=== PATIENT | male | born 1925 | race Caucasian/White ===

== ENCOUNTER → 2016-10-08 | Outpatient (CLI) | payer OTHER, MEDICARE ==
[~2016-10-08] MED LIST: IOPAMIDOL (ISOVUE 370) 100 ML BTL IV ONE
[2016-10-08 10:13] LABS: CREATININE 1.7 mg/dL (0.7-1.3)
== END ==
LOC: FIMAGING 09:31
PROVIDERS: ATTEND Psychiatry & Neurology Neurology
DX: I65.22 Occlusion and stenosis of left carotid artery (principal)
CPT/HCPCS: 70498; Q9967

== ENCOUNTER → 2016-10-21 | Outpatient (CLI) | payer OTHER, MEDICARE | LOC: BHFA 09:15 | PROVIDERS: ATTEND Internal Medicine Cardiovascular Disease | DX: I25.10 Atherosclerotic heart disease of native coronary artery without angina pectoris (principal); R06.00 Dyspnea, unspecified ==

== ENCOUNTER → 2016-10-27 | Outpatient (CLI) | payer OTHER, MEDICARE | LOC: BHFA 13:00 | PROVIDERS: ATTEND Internal Medicine Interventional Cardiology | DX: I25.10 Atherosclerotic heart disease of native coronary artery without angina pectoris (principal); E78.5 Hyperlipidemia, unspecified; I10 Essential (primary) hypertension; I65.29 Occlusion and stenosis of unspecified carotid artery ==

== ENCOUNTER → 2016-12-26 | Outpatient (CLI) | payer OTHER, MEDICARE | LOC: FIMAGING 15:17 | DX: I27.2 Other secondary pulmonary hypertension (principal); R09.02 Hypoxemia; R06.02 Shortness of breath; Z86.718 Personal history of other venous thrombosis and embolism | CPT/HCPCS: 71020; 78582; A9540; A9558 ==

== ENCOUNTER 2017-01-14 10:48 | Observation (INO) | payer OTHER, MEDICARE ==
--- NOTE | 2017-01-14 11:04 | CPEKG ---
Heart Rate: 45 RR Interval: 1333 P-R Interval: 168 QRSD Interval: 154 QT Interval: 488 QTC Interval: 423 P [place]: 67 QRS [place]: 78 T Wave [place]: 51 EKG Severity - ABNORMAL ECG - EKG Impression: BRADYCARDIA WITH IRREGULAR RATE 39-49 EKG Impression: RIGHT BUNDLE BRANCH BLOCK Electronically Signed By: Megan Duran 14-Jan-2017 20:42:27
--- NOTE | 2017-01-14 13:04 | EDPHY ---
H & P Time Seen by Provider: 01/14/17 12:55 HPI/ROS: CHIEF COMPLAINT: Off balance HISTORY OF PRESENT ILLNESS: The patient is an 89-year-old male with hypertension and carotid endarterectomy two months ago who presents with confusion, vertigo, and ataxia onset 9am. His noted that he was confused at 9am. The patient stood up after speaking with his brother on the phone and felt a spinning sensation. At that time his right ear felt blocked "like water should be dribbling out of it." The patient tried walking over to the couch, but felt unsteady and off balance. He took a nap and when he got up and his spinning had resolved. However, he continues to feel "wobbly" with ambulation. He went for a 3 mile hike yesterday without issue. The patient had a left sided carotid endarterectomy two months ago without complication. Patient takes a daily Aspirin. No recent changes in medications. No recent head/neck trauma. REVIEW OF SYSTEMS: A comprehensive 10 point review of systems is otherwise negative aside from elements mentioned in the history of present illness. Past Medical/Surgical History: Hypertension, Gout, Carotid endarterectomy November 2016, DVT, Carotid stent x1 Social History: Retired. Lives in [place] with his partner. Smoking Status: Former smoker Physical Exam: General Appearance: Alert, pleasant Eyes: Pupils equal and round, no conjunctival pallor or injection, nystagmus with leftward gaze ENT, Mouth: Mucous membranes moist Neck: Normal inspection Respiratory: Lungs are clear to auscultation Cardiovascular: Regular rate and rhythm Gastrointestinal: Abdomen is soft and non-tender Neurological: Alert, oriented x3, cranial nerves II through XII intact, motor 5 /5, sensory intact to light touch. Ataxic gait. Skin: Warm and dry, no rash Extremities: Nontender, no pedal edema Psychiatric: Mood and affect normal Constitutional: Initial Vital Signs Temperature (C) 36.4 C 01/14/17 10:51 Heart Rate 53 L 01/14/17 10:51 Respiratory Rate 16 01/14/17 10:51 Blood Pressure 180/98 H 01/14/17 10:51 O2 Sat (%) 98 01/14/17 10:51 O2 Delivery Mode Room Air Allergies/Adverse Reactions: No Known Allergies Allergy (Unverified 05/15/14 19:29) Home Medications: Medication Instructions Recorded Allopurinol [Allopurinol 100 MG 200 mg PO DAILY 05/15/14 (*)] Aspirin [Aspirin 325 mg (*)] 325 mg PO DAILY 05/15/14 Finasteride [Proscar 5 MG (*)] 5 mg PO DAILY 05/15/14 Losartan Potassium [Cozaar] 100 mg PO DAILY 05/15/14 Simvastatin [Zocor] 40 mg PO DAILY 05/15/14 amLODIPine BESYLATE [Norvasc 5 mg 5 mg PO DAILY 05/15/14 (*)] Medical Decision Making - Diagnostics EKG Interpretation: EKG interpreted by me reveals: Sinus rhythm, RBBB. Imaging Results: Imaging Impressions Head CT 01/14/17 13:16 Impression: Nothing acute on this CT scan. Awaiting CT angiogram. Findings and recommendations discussed with MEGAN DURAN at 1340 pm hour, 01/14. Final report concurs with initial preliminary interpretation. Head CTA 01/14/17 13:16 Impression: Negative for significant stenosis in an 89-year-old male who is status post left carotid endarterectomy. CT Angiography of the Head Clinical Indications: Altered mental status in an 89-year-old male; stroke alert. Evaluate for arterial occlusive disease. Technique: During automated power injection of 75 mL of Isovue-300, thinly collimated spiral (volumetric) multidetector helical CT was performed through the head. Independent three-dimensional computer workstation was used for additional manipulations of images by the radiologist. Also, a three- dimensional reformation is performed by the radiologist. Dose reduction techniques were utilized. Findings: The [place] and its branches are normal. No evidence of aneurysm of vascular malformation. No occlusions are found. Impression: Normal. Note: All stenoses are calculated using NASCET Criteria. Results called and discussed with Dr. Megan Duran on 01/14/2017 at 1451 hours. Neck CTA 01/14/17 13:16 Impression: Negative for significant stenosis in an 89-year-old male who is status post left carotid endarterectomy. CT Angiography of the Head Clinical Indications: Altered mental status in an 89-year-old male; stroke alert. Evaluate for arterial occlusive disease. Technique: During automated power injection of 75 mL of Isovue-300, thinly collimated spiral (volumetric) multidetector helical CT was performed through the head. Independent three-dimensional computer workstation was used for additional manipulations of images by the radiologist. Also, a three- dimensional reformation is performed by the radiologist. Dose reduction techniques were utilized. Findings: The [place] and its branches are normal. No evidence of aneurysm of vascular malformation. No occlusions are found. Impression: Normal. Note: All stenoses are calculated using NASCET Criteria. Results called and discussed with Dr. Megan Duran on 01/14/2017 at 1451 hours. Imaging: Discussed imaging studies w/ radio message router Radiologist ED Course/Re-evaluation: Patient presents with acute confusion, vertigo, and ataxia onset 9am. At onset of symptoms patient felt a spinning sensation. This has resolved, however patient continues to have ataxic gait. The patient had an MRI brain yesterday as a followup for carotid endarterectomy two months ago. He went for a 3 mile hike yesterday without issue. On exam patient has ataxic gait and horizontal nystagmus. Concerning for acute CVA. 1:20 p.m.: Stroke alert activated by me. Patient was taken to CT. 1:24 p.m.: I consulted with Dr. Srinivasan, [facility] who will assess the patient. 1:50 p.m.: Patient has a negative noncontrast head CT. I consulted Dr. Srinivasan with [facility], she has examined the patient. The patient is not a tPA candidate and advises admission for stroke workup, including CTA head and neck. 1:55 p.m.: I consulted the hospitalist team, the patient will be admitted to Dr. Velasco. 2:00 p.m.: I discussed findings with the patient and his family. They agree with plan for admission. Differential Diagnosis: Altered mental status including but not limited to hypoglycemia, infectious process, electrolyte abnormality, head injury and intoxicants. - Data Points Laboratory Results: Laboratory Results 01/14/17 13:25 01/14/17 13:25 01/14/17 01/14/17 01/14/17 13:25 13:25 13:22 WBC 6.30 10^3/uL 10^3/uL (3.80-9.50) RBC 5.14 10^6/uL 10^6/uL (4.40-6.38) Hgb 15.9 g/dL g/dL (13.7-17.5) POC Hgb 17.7 gm/dL H gm/dL (13.7-17.5) Hct 48.3 % % (40.0-51.0) POC Hct 52 % H % (40-51) MCV 94.0 fL fL (81.5-99.8) MCH 30.9 pg pg (27.9-34.1) MCHC 32.9 g/dL g/dL (32.4-36.7) RDW 13.3 % % (11.5-15.2) Plt Count 203 10^3/uL 10^3/uL (150-400) MPV 11.2 fL fL (8.7-11.7) Neut % (Auto) 63.3 % % (39.3-74.2) Lymph % (Auto) 21.3 % % (15.0-45.0) Gates % (Auto) 11.7 % % (4.5-13.0) Eos % (Auto) 2.4 % % (0.6-7.6) Baso % (Auto) 0.8 % % (0.3-1.7) Nucleat RBC Rel Count 0.0 % % (0.0-0.2) Absolute Neuts (auto) 3.99 10^3/uL 10^3/uL (1.70-6.50) Absolute Lymphs (auto) 1.34 10^3/uL 10^3/uL (1.00-3.00) Absolute Monos (auto) 0.74 10^3/uL 10^3/uL (0.30-0.80) Absolute Eos (auto) 0.15 10^3/uL 10^3/uL (0.03-0.40) Absolute Basos (auto) 0.05 10^3/uL 10^3/uL (0.02-0.10) Absolute Nucleated RBC 0.00 10^3/uL 10^3/uL (0-0.01) Immature Gran % 0.5 % % (0.0-1.1) Immature Gran # 0.03 10^3/uL 10^3/uL (0.00-0.10) POC Sodium 145 mEq/L H mEq/L (134-144) Sodium 143 mEq/L mEq/L (134-144) POC Potassium 4.0 mEq/L mEq/L (3.3-5.0) Potassium 4.1 mEq/L mEq/L (3.5-5.2) POC Chloride 99 mEq/L mEq/L (97-110) Chloride 106 mEq/L mEq/L (97-110) Carbon Dioxide 28 mEq/l mEq/l (22-31) Anion Gap 9 mEq/L mEq/L (8-16) POC BUN 26 mg/dL H mg/dL (7-23) BUN 25 mg/dL H mg/dL (7-23) Creatinine 1.6 mg/dL H mg/dL (0.7-1.3) POC Creatinine 1.7 mg/dL H mg/dL (0.7-1.3) Estimated GFR 41 Glucose 104 mg/dL H mg/dL (70-100) POC Glucose 104 mg/dL H mg/dL (70-100) Calcium 9.6 mg/dL mg/dL (8.5-10.4) Troponin I < 0.012 ng/mL ng/mL (0-0.034) Point of Care Test Results: 01/14/17 13:22 POC Sodium 145 H POC Potassium 4.0 POC Chloride 99 POC BUN 26 H POC Creatinine 1.7 H POC Glucose 104 H Departure - Departure Disposition: [facility] Inpatient Acute Clinical Impression: Ataxia Condition: Fair Report Scribed for: Megan Duran Report Scribed by: Sandhya Rodrigues Date of Report: 01/14/17 Time of Report: 13:04 Physician Review and Approval Statement: 01/14/17 13:04 Portions of this chart were entered by a scribe. I personally performed the history and physical exam. I have reviewed this chart and agree with the documentation.
[2017-01-14] MEDS ORDERED: IOPAMIDOL (ISOVUE 370) 100 ML BTL IV ONE (13:19)
[2017-01-14 13:36] LABS: % IMMATURE GRANULYOCYTES 0.5 % (0.0-1.1); ABSOLUTE IMMATURE GRANULOCYTES 0.03 10^3/uL (0.00-0.10); ADD DIFF? NO; ADD MORPH? NO; ADD SCAN? NO; ATYPICAL LYMPHOCYTE FLAG 0 (0-99); FRAGMENT RBC FLAG 0 (0-99); HEMATOCRIT 48.3 % (40.0-51.0); HEMOGLOBIN 15.9 g/dL (13.7-17.5); LEFT SHIFT FLG 0 (0-99); LIPEMIA HEMOLYSIS FLAG 80 (0-99); MEAN CELL HEMOGLOBIN 30.9 pg (27.9-34.1); MEAN CELL HEMOGLOBIN CONCENTR. 32.9 g/dL (32.4-36.7); MEAN PLATELET VOLUME 11.2 fL (8.7-11.7); PLATELET CLUMPS FLAG 20 (0-99); PLATELET COUNT 203 10^3/uL (150-400); RED BLOOD CELL COUNT 5.14 10^6/uL (4.40-6.38); RED CELL DISTRIBUTION WIDTH 13.3 % (11.5-15.2)
[2017-01-14 13:46] LABS: ANION GAP 9 mEq/L (8-16); CALCIUM 9.6 mg/dL (8.5-10.4); CARBON DIOXIDE 28 mEq/l (22-31); CHLORIDE 106 mEq/L (97-110); CREATININE 1.6 mg/dL (0.7-1.3); GLOMERULAR FILTRATION RATE 41; GLUCOSE 104 mg/dL (70-100); POTASSIUM 4.1 mEq/L (3.5-5.2); SODIUM 143 mEq/L (134-144)
[2017-01-14 13:58] LABS: TROPONIN I < 0.012 ng/mL (0-0.034)
[2017-01-14] MEDS ORDERED: ONDANSETRON 4 MG/2 ML VIAL IVP PRN (14:18)
[2017-01-14] MEDS ORDERED: ONDANSETRON DISINTEGRATING 4 MG TAB PO PRN (14:18)
[2017-01-14] MEDS ORDERED: ACETAMINOPHEN 325 MG TAB PO PRN (14:18)
--- NOTE | 2017-01-14 20:51 | GHP ---
[f rep st] HISTORY AND PHYSICAL DATE OF ADMISSION: 01/14/2017 HISTORY OF PRESENT ILLNESS: The patient is a pleasant, 89-year-old gentleman with history of nayak ry artery disease and cerebral vascular disease, carotid endarterectomy on the left 1 month ago. He has done well since then. This morning, he woke up, he was talking on phone and he felt a fullness in his ear. He got up to walk, he felt dizzy as if the room was spinning. He had a difficult time walking but ultimately was able to sit down. His symptoms have since resolved. At the time, he di d not immediately seek care but he laid down for a bit of time and then went to Urgent Care. This h appened at 9 a.m. His partner thought he was confused at that point. He denied focal numbness or w eakness or palpitations. His family expresses concern that his blood pressure is higher than normal . His resting pulse in the 50s. It has been down in the 40s here. He did not have presyncopal-typ e symptoms. His vertigo symptoms had resolved following his nap. He ultimately sought care at [facility] and was referred to the emergency department. He had an MRI yesterday for followup on his left-sided endarterectomy and was unchanged from previou s. This is per report as I do not have access as this was report was done in another system. He ta kes a daily aspirin. He has no exertional symptoms and no angina. He does have remote coronary art esperanza disease. PAST MEDICAL HISTORY: BPH, gout, hypertension, stent x1 in his heart, history of DVT, carotid endar terectomy in 11/2016. SOCIAL HISTORY: He is retired. Nonsmoker. Nondrinker. Lives in [place] with his partner. He is a former smoker. Retired practice architect. FAMILY HISTORY: Sons are at the bedside and healthy. ALLERGIES: No known drug allergies. HOME MEDICATIONS: Aspirin, amlodipine, atorvastatin, allopurinol, finasteride. PHYSICAL EXAMINATION: VITAL SIGNS: Temp 36.4, blood pressure 180/98, now 150/78, pulse 53, breathi ng 16 times a minute, 98% on room air. GENERAL: In no acute distress. HEENT: Sclerae anicteric. Oropharynx clear. Mucous membranes are moist. NECK: Supple without lymphadenopathy or JVD. LUNG S: Clear to auscultation bilaterally. HEART: S1, S2 without murmurs. ABDOMEN: Soft, nontender, nondistended. LOWER EXTREMITIES: No edema. Calves are nontender. SKIN: Without rash. NEUROLOGI C: Nonfocal. Upper extremity and lower extremity strength and sensation are 5/5 bilaterally. Gait is a bit shuffling. There is no lateral nystagmus. Cranial nerves 2-12 are intact. Cerebellar te sting not done. LABORATORY AND X-RAY DATA: White count 6, hematocrit 48, platelets are 203,000. Sodium 143, potass ium 4.1, chloride 106, bicarb 20, BUN 25, creatinine 1.6, glucose 104. Troponin less than 0.012. EKG interpreted by me and shows sinus bradycardia at 45 with right bundle branch block pattern. I eri bergeron discussed the case with Dr. Aashish Marie. I have discussed the case with Dr. Flakita Duran. I d iscussed the case with the patient's son, who is a jackhammer splitter operator. ASSESSMENT/PLAN: This is an 89-year-old gentleman with likely peripheral vertigo. 1. Peripheral vertigo. Acute cerebrovascular accident can cause peripheral vertigo; however, the p atient's symptoms rapidly resolved, and typically, cerebrovascular accident resulting in vertigo las ts longer. Patient is not a candidate for lytics on the basis of time and low NIH stroke scale. 2. Family is very curious and MRI so that has been ordered. I suppose if he has a stroke, we could consider changing aspirin to Plavix. 3. Bradycardia. Will follow on telemetry. 4. Concern for obstructive sleep apnea. The patient has concern for obstructive sleep apnea. I alegre ve ordered a room air ABG at the request of his jackhammer splitter operator son. 5. Prophylaxis. Pharmacologic prophylaxis is indicated if in the hospital longer than 24 hours. DISPOSITION: Observation status. /[id number]/MODL
[2017-01-15 03:53] LABS: BASE EXCESS 0.1 mEq/L (-2.5-2.5); BICARBONATE 24 mEq/L (22-26); MEASURED OXYGEN SATURATION 90 % (92-95); PCO2 37 mmHg (34-38); PO2 62 mmHg (65-75); TCO2 25 mEq/L (23-27)
[2017-01-15] MEDS ORDERED: PSYLLIUM METAMUCIL 1 PKT PO SCH (09:00)
[2017-01-15] MEDS ORDERED: ALLOPURINOL 100 MG TAB PO SCH (09:00)
[2017-01-15] MEDS ORDERED: ASPIRIN 325 MG TAB PO SCH (09:00)
[2017-01-15] MEDS ORDERED: amLODIPine BESYLATE 5 MG TAB PO SCH (09:00)
[2017-01-15] MEDS ORDERED: FINASTERIDE 5 MG TAB PO SCH (09:00)
[2017-01-15] MEDS ORDERED: ATORVASTATIN CALCIUM 20 MG TAB PO SCH (09:00)
[2017-01-15] MEDS ORDERED: LOSARTAN POTASSIUM 50 MG TAB PO SCH (09:00)
[2017-01-15] MEDS ORDERED: CLOPIDOGREL BISULFATE 75 MG TAB PO SCH (10:00)
--- NOTE | 2017-01-15 10:34 | GCON ---
[f rep st] CONSULTATION NEUROLOGIC CONSULTATION REFERRING PHYSICIAN: Piyush Johnson MD REASON FOR CONSULTATION: The patient is an 89-year-old gentleman whom I am asked to see in neurolog ic consultation for an episode of disequilibrium and some mild confusion. The history is obtained from reviewing the medical records from the emergency department as well as Dr. Johnson's history and physical and discussions directly with the patient, his and his son. HISTORY OF PRESENT ILLNESS: He has a history of a carotid endarterectomy on the left 1 month ago, a nd had no acute problems directly related to that. He had an episode yesterday morning when he was talking on the phone to wish a family member happy birthday, and he said something did not feel righ t. He says it felt as if there was pressure, like he had water in his right ear and the side of his head did not feel quite right. He then recognized that he was unsteady to the point where he might even lose his balance. There was some vertigo associated with this and he went to speak to his wif e. She said he needed some assistance to help keep his balance. He had a very wide base. She did not see any asymmetry of his facial movements. He was not initially acutely confused. She said the y called Dr. Adams's office and could be seen immediately, so they went to an Urgent Care, and the n was transferred to the hospital for further evaluation. His said that he was a little bit confused in that he was repeating himself and did not seem to fully understand what was happening. The disequilibrium lasted for several minutes, although it is hard to say exactly how long. The confusion was temporary as well and cleared. His says she checked his pulse and it was around the 50s. He then developed some hypertension, which is not his normal baseline. He did not have chest pain or palpitations. 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 CT angiogram of the head and neck were unremarkable for any significant stenoses. He says now he feels essentia lly back to himself, except that he cannot hear out of his right ear and that is a new problem he alegre s not had before, although he wears hearing aids. He has additional prior history of coronary arter y disease, which was apparently found without acute symptomatology during a workup, and the best I c an piece together, he had probably an abnormality seen on an EKG that led to a stress test, that led to eventually catheterization and stenting. He has never had known specific angina or myocardial i nfarction. He stays very physically active. He is known to have oxygen desaturation and is suspect ed to have sleep apnea, and was supposed to have a sleep study in [place] last night but that was obv iously missed because of this set of symptoms. No clear-cut alleviating or exacerbating factors for the symptoms, although historically he has some tendency to be a little bit unsteady when he gets u p and needs to wait a few minutes and his walking goes from short steps and wide-based to improvemen t over time. During his workup with Dr. Johnson, he was documented to have a peripheral neuropathy and that is manifesting with some unsteadiness at times, especially when it is darker. PAST MEDICAL HISTORY: BPH, gout, hypertension, coronary stenting, history of DVT, carotid end arter ectomy in November of this year. SOCIAL HISTORY: He is retired. He is not smoking. No drinking. He did have some smoking in the p ast. 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 FAMILY HISTORY: Noncontributory. ALLERGIES: No allergies. MEDICINES: Amlodipine, aspirin, atorvastatin, allopurinol, finasteride. PHYSICAL EXAMINATION: VITAL SIGNS: Blood pressure is 151/87, pulse of 60, respirations 20, tempera ture 36.3. GENERAL: He is well-developed, in no acute distress, but a little overweight. EYES: A re clear. NECK: Supple, with no bruits or masses. CARDIAC: Regular rate and rhythm. No murmur. NEUROPSYCHIATRIC: He is awake, alert and attentive, with clear fluent speech. He is oriented to p erson, place, and time. He has a little bit of decreased short-term memory for the details of this event, but knows most of the details fairly well. He was not aware of some of the confusion that hi s noticed. The general fund of knowledge is preserved. Concentration and attention are preser tyesha. Pupils 3 mm and reactive. Extraocular movements are intact. I cannot view the fundi adequate ly for comment. No visual field loss. Extraocular movements are intact. Normal facial sensation a nd strength. Palate elevates symmetrically. Tongue protrudes midline. Hearing testing is characte rized by preservation on the left for air conduction and bone conduction. On the right, there is lo ss of air conduction but preservation of bone conduction. The Nichole testing does not lateralize. N o weakness of head turning or shoulder shrug. Motor exam: Normal muscle bulk and tone, with 5/5 st rength and no abnormal movements. Sensation is preserved for temperature and light touch in the upp er extremities. In the lower extremities, he has distal decreased sensory perception. Reflexes are absent in the lower extremities and trace in the upper extremities, with no pathologic reflexes. N o ataxia on [id number]. His gait is characterized by slightly wide base and gait with shortened steps, but not shuffling. He can walk independently and turns without losing his balance. When he initially gets up he feels a little bit unsteady, but did not have a positive Romberg test. IMAGING: I have reviewed the CT angiogram, head CT and MR, and see evidence of the old left occipit al stroke on the MRI. He has fairly prominent cerebral atrophy and mild microvascular disease for t he most part. LABORATORY STUDIES: Normal CBC. Electrolytes: Sodium of 143, potassium 4.1, chloride 106, bicarbo bess 28, BUN 25, creatinine 1.6. Normal troponin. IMPRESSION: The patient has experienced an episode of rather acute disequilibrium with some altered hearing on the right and some mild confusion. Aspects of the case initially sounded like it might just be a primary vestibular disorder, but the associated confusion and language change makes me con cerned that there might have been actual ischemia. Microvascular disease affecting the vestibular n erve or the cochlea could account for why he has developed the hearing loss on the right. The neura l portion with bone conduction is relatively preserved compared to the air conduction. This does se em to be a brand new problem. The MRI rules out any evidence of an acute cerebral infarction. Micr ovascular infarcts could not be visualized very likely on an MRI within the vestibular cochlear nerv e. He is, for the most part, back to his baseline now, except for the hearing loss. He has multipl e risk factors for vascular disease that include known coronary disease, known cerebrovascular disea se, as well as hyperlipidemia. Age is a further risk factor, and he also has probable sleep apnea w ith hypoxemia at times and this may contribute as well. He has history of pulmonary hypertension an d that is being evaluated further. PLAN: In the short term, I am recommending adding Plavix to his aspirin regimen, and continuing the other medications. Echocardiogram will be obtained. From a neurologic standpoint, he can be disch arged and follow up as an outpatient. He needs to have his workup completed for sleep apnea and brody t needs to be appropriately managed. I will defer to the hospitalist service regarding any other me dical concerns that would warrant any further hospitalization. I spoke to his family, answered questions and discussed everything in detail. I gave them my card. They can certainly follow up with me or they can follow up with Dr. Johnson, who is the [facility] physician who has seen him already. NIH stroke scale was 0. Copy requested to: Dr. Adams /[id number]/MODL
[2017-01-15 11:42] VITALS: BP 158/97; PULSE 50; RESP 18; TEMP 97.9; O2SAT 93
--- NOTE | 2017-01-15 12:40 | ECHO ---
[id number] + + [address] : : [place] [address] : : [phone] + + Adult Echocardiographic Report + ---------+ :Name: RENATO MTZ MStudy Date: 01/15/2017 10:17 AM : : Hospital Admission Number: [id number] Sheila shreman: [birth year]: :: 1925 Gender: Male Height: 72 i n : :Age: 89 yrs Race: WH Weight: 224 lb : :Reason For Study: Eval LV Fx : : BSA: 2.2 met ers2 : :History: TIA : + ---------+ MMode/2D Measurements \T\ Calculations IVSd: 0.99 cm LVIDd: 5.4 cm FS: 42.3 % Ao root diam: 2.9 cm LVPWd: 0.99 cm LVIDs: 3.1 cm EDV(Teich): 141.5 ml ACS: 1.8 cm ESV(Teich): 38.5 ml EF(Teich): 72.8 % Normal Measurement Values: + + :LVIDd (3.5-5.7cm) IVSd (0.6-1.1cm) LVPWd (0.6-1.1cm) Aortic Root (2.0-3.7cm)Left Atrium (1.5-4.0cm): :LV Vol(d) (76-115ml) LV Vol(s) (29-48ml) Ejec Fraction (50-65%)PV Kory (0.6- 1.2m/s) TV Kory (0.4-1.0m/s) : :MV E Kory (0.8-1.0m/s)MV A Kory (0.3-1.0m/s)LVOT Kory (0.7-1.2m/s) Asc Ao Kory ( 0.9-1.8m/s) : + + Doppler Measurements \T\ Calculations MV E max kory: Ao V2 max: LV V1 max: PA V2 max: 68.1 cm/sec 122.2 cm/sec 82.9 cm/sec 65.2 cm/sec MV A max kory: Ao max P.0 mmHgLV V1 max PG: PA max P.0 cm/sec 2.8 mmHg 1.7 mmHg MV E/A: 1.8 TR max kory: 333.9 cm/sec TR max P.6 mmHg RAP systole: 5.0 mmHg RVSP(TR): 49.6 mmHg Left Ventricle The LV size is normal for his BSA. There is normal left ventricular wall thickness. The left ventricular ejection fraction is normal. Bradycardia was noted during his exam. Baseline rate is 55 bpm and his rate during the echo went to 36-42 bpm. The left ventricular ejection fraction is calculated at 72.8 %. The left ventricular wall motion is normal. Right Ventricle The right ventricular cavity is small. Atria The left atrium is mild to moderately dilated. Right atrial size is normal. Mitral Valve The mitral valve is normal in structure and function. There is trace to mild mitral regurgitation. Tricuspid Valve Normal tricuspid valve. There is mild tricuspid regurgitation. Right ventricular systolic pressure is 49mmHg. There is Doppler evidence for mild to moderate pulmonary hypertension. Aortic Valve The aortic valve is trileaflet. There is no aortic stenosis. Trace aortic regurgitation. Pulmonic Valve The pulmonic valve is not well visualized. There is no pulmonic valvular regurgitation. Great Vessels The aortic root is normal size. Pericardium/Pleural There is no pericardial effusion. Conclusion A complete two-dimensional transthoracic echocardiogram was performed (2D, M-mode, Doppler and color flow Doppler). (1) Left ventricular systolic ejection fraction was normal (70-75%) - normal wall motion (2) No left ventricular hypertrophy (3) Normal diastolic function (4) Small right ventricular cavity (5) Mild to moderate left atrial dilation with normal right atrial dimensions (6) Trace/mild mitral regurgitation (7) Trileaflet aortic valve without sclerosis or stenosis. Physiologic insufficiency was noted (8) Mild tricuspid regurgitation - RVSP was estimated to be 45- 50 mm HG (9) Poor visualization of the pulmonic valve without appreciable insufficiency noted (10) No pericardial effusion (11) In comparison to prior echocardiogram from 2015, no significant changes have been noted. Final Reading Physician: Damion Humphreys signed on 01/15/2017 12:39 PM Ordering Physician: Piyush Johnson Performed By: Tyler Luis, [employer]
--- NOTE | 2017-01-15 13:45 | HOSPPROG ---
Hospitalist Progress Note Assessment/Plan: 89 yo M w TIA vs peripheral vertigo home tday w addition of plavix a great deal more than 30' spent on dc see dc summary Subjective: tele: bradycardia, no AF (interp by me). case d/w nikko ornelas, cardiology [employer] Objective: Vital Signs Temp Pulse Resp BP Pulse Ox 36.6 C 50 L 18 158/97 H 93 01/15/17 11:41 01/15/17 11:41 01/15/17 11:41 01/15/17 11:41 01/15/17 11:41 01/14/17 01/15/17 01/16/17 05:59 05:59 05:59 Intake Total 500 Balance 500 - Physical Exam Constitutional: no apparent distress, appears nourished Eyes: PERRL, anicteric sclera Ears, Nose, Mouth, Throat: moist mucous membranes, hearing normal Cardiovascular: regular rate and rhythym, no murmur, rub, or gallop Respiratory: no respiratory distress, no rales or rhonchi Gastrointestinal: normoactive bowel sounds, soft, non-tender abdomen Genitourinary: No hein in urethra Skin: warm, normal color Musculoskeletal: full muscle strength, no muscle tenderness Neurologic: AAOx3, sensation intact bilaterally Psychiatric: interacting appropriately ICD10 Worksheet Patient Problems: Problems Problem Status Onset Ataxia Acute
--- NOTE | 2017-01-15 17:25 | GDS ---
[f rep st] DISCHARGE SUMMARY DISCHARGE DIAGNOSES: 1. Episode of vertigo, accompanied with some mild confusion and speech difficulties. MRI without new lesions. The ultimately opinion is peripheral vertigo versus transient ischemic attack. 2. Likely obstructive sleep apnea. 3. Resting hypoxia. 4. Coronary artery disease. 5. History of cerebral vascular disease with carotid endarterectomy on the left in November of 2016. 6. History deep vein thrombosis. 7. Benign prostatic hypertrophy. 8. Gout. PROCEDURES DURING THIS ADMISSION: Head and neck CTA, which showed no significant vascular lesions. Head CT showing no stroke, microvascular ischemic disease. 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 No evidence of acute cortical ischemia. He also had an echocardiogram showing elevated pulmonary hypertension, pulmonary artery pressures of 45-50 with diastolic dysfunction. Left atrial dilation. All of these were known previously. He was noted to have resting hypoxia. A room air ABG showed a P02 of 62. He had oxygen saturations of 78% on RA vernight that corrected with 2 L 02. He is discharged w home nocturnal oxygen pending a formal sleep study. CONSULTATIONS: He was seen in consultation by Neurology, who felt that because of his speech deficit, possibly represents a TIA. The patient had completely resolved this by the time I saw him evaluation at about 8:00 p.m. the night of admission. HOSPITAL COURSE: The patient continued to be at his normal neurologic status. Because of the concern for neurovascular event, Plavix was added to his aspirin. Medications are otherwise unchanged. He does have some right-sided hearing loss, and it was recommended that if he does not continue to improve, to see outpatient ENT with audiology testing for followup. New prescription is Plavix. /[id number]/MODL MTDD
== END 2017-01-15 15:09 | disposition home or self-care (01) ==
LOC: INTOOBSV 14:18 → OBSVTOIN 14:18 → F2N 16:42 → F2W 01-15 08:01
PROVIDERS: ADMIT Family Medicine; ATTEND Internal Medicine
DX: R42 Dizziness and giddiness (principal); R47.9 Unspecified speech disturbances; R41.0 Disorientation, unspecified; R09.02 Hypoxemia; R00.1 Bradycardia, unspecified; R29.700 NIHSS score 0; H91.91 Unspecified hearing loss, right ear; I25.10 Atherosclerotic heart disease of native coronary artery without angina pectoris; I67.9 Cerebrovascular disease, unspecified; N40.0 Benign prostatic hyperplasia without lower urinary tract symptoms; M10.9 Gout, unspecified; I27.2 Other secondary pulmonary hypertension; I10 Essential (primary) hypertension; Z79.82 Long term (current) use of aspirin; Z87.891 Personal history of nicotine dependence; Z86.73 Personal history of transient ischemic attack (TIA), and cerebral infarction without residual deficits; Z86.718 Personal history of other venous thrombosis and embolism; Z95.5 Presence of coronary angioplasty implant and graft
CPT/HCPCS: 70450; 70496; 70498; 70551; 93005; 93306; 97161; 97165; 99285; G0378; G8978; G8979; G8980; G8987; G8988; G8989; Q9967; 82947-QW

== ENCOUNTER → 2017-08-11 | Outpatient (CLI) | payer OTHER, MEDICARE | LOC: BHFA 10:45 | PROVIDERS: ATTEND Internal Medicine Cardiovascular Disease | DX: I25.10 Atherosclerotic heart disease of native coronary artery without angina pectoris (principal) ==

== ENCOUNTER → 2017-10-06 | Outpatient (CLI) | payer OTHER, MEDICARE | LOC: FIMAGING 11:02 | PROVIDERS: ATTEND Psychiatry & Neurology Neurology | DX: M54.2 Cervicalgia (principal); R26.81 Unsteadiness on feet ==

== ENCOUNTER 2017-10-08 16:18 | Emergency (ER) | payer OTHER, MEDICARE ==
--- NOTE | 2017-10-08 17:48 | EDPHY ---
H & P Stated Complaint: right knee pain and swelling Time Seen by Provider: 10/08/17 17:47 HPI/ROS: HPI: This is a 89-year-old male who presents with Chief Complaint: Right knee pain and swelling Location: Right inferior knee medial aspect Quality: Pain, bruising, swelling Duration: 1-3 hours prior to arrival Signs and Symptoms: No bleeding, no radiation, no numbness, no weakness, no tingling, no incontinence, + decreased range of motion, + swelling, + pain, no fever Timing: Acute Severity: Moderate to severe Context: Patient presents accompanied by his status post climbing for an hour with 12 30-130 and then walking around to purchase orchids this afternoon. Upon returning home he noticed a raised bruised area on the medial aspect inferior aspect of his right knee that was extremely tender to touch. Does not remember actually injuring the area or having trauma to the area. Ambulatory without deficits although the has a history of chronic balance deficits. Takes aspirin and Plavix daily. History of DVTs in the past but not on any secondary anticoagulation. Denies any chest pain/shortness of breath. No history of gouty arthropathy. Denies fever/warmth. Denies LOC/head injury/neck pain/ dizziness/nausea/vomiting/amnesia. Modifying Factors: Comment: ROS: see HPI Constitutional: No fever, no chills, no weight loss Eyes: No blurred vision Respiratory: No shortness of breath, no cough Cardiovascular: No chest pain Gastrointestinal: No nausea, no vomiting no diarrhea Genitourinary: No dysuria Extremities: No myalgias Neurologic: No weakness, no numbness Skin: No rashes Hematologic: No bruising, no bleeding MEDICAL/SURGICAL/SOCIAL HISTORY: Medical/surgical history: CEA november2016, elevated creatine, stent x1, DVTs, gout , HTN, Social history: . Retired. CONSTITUTIONAL: Pleasant well-appearing elderly white male, awake and alert, no obvious distress HEENT: Atraumatic and normocephalic, PERRL, EOMI. Tympanic membranes clear. Oropharynx clear, no exudate and moist pink mucosa. Airway patent. No lymphadenopathy. No meningismus. Cardiovascular: Normal S1/S2, regular rate, regular rhythm, without murmur rub or gallop. PULMONARY/CHEST: Symmetrical and nontender. Clear to auscultation bilaterally. Good air movement. No accessory muscle usage. ABDOMEN: Soft, nondistended, nontender, no rebound, no guarding, no peritoneal signs, no masses or organomegaly. No CVAT. EXTREMITIES: 2/2 pulses, strength 5/5, right KNEE: 6 mm raised area at inferior medial aspect of the knee near the tibial tuberosity that is extremely tender to palpation; ecchymosis noted. no effusion, no medial and lateral joint line tenderness, full extension to 180, flexion to 120. Moderate pain with varus and valgus exam. No pain with anterior drawer or posterior drawer test. no deformities, no clubbing, no cyanosis or edema. NEUROLOGICAL: no focal neuro deficits. GCS 15. SKIN: Warm and dry, no erythema. no rash. Good capillary refill. Source: Patient Exam Limitations: No limitations - Personal History Current Tetanus Diphtheria and Acellular Pertussis (TDAP): Yes - Medical/Surgical History Hx Asthma: No Hx Chronic Respiratory Disease: No Hx Diabetes: No Hx Cardiac Disease: Yes Hx Renal Disease: Yes Hx Cirrhosis: No Hx Alcoholism: No Hx HIV/AIDS: No Hx Splenectomy or Spleen Trauma: No Other PMH: CEA november2016, elevated creatine, stent x1, DVTs, gout, HTN, - Social History Smoking Status: Former smoker Constitutional: Initial Vital Signs Temperature (C) 36.7 C 10/08/17 16:29 Heart Rate 64 10/08/17 16:29 Respiratory Rate 16 10/08/17 16:29 Blood Pressure 169/94 H 10/08/17 16:29 O2 Sat (%) 94 10/08/17 16:29 O2 Delivery Mode Room Air Allergies/Adverse Reactions: No Known Allergies Allergy (Unverified 05/15/14 19:29) Home Medications: Medication Instructions Recorded Allopurinol [Allopurinol 100 MG 200 mg PO DAILY 05/15/14 (*)] Aspirin [Aspirin 325 mg (*)] 325 mg PO DAILY 05/15/14 Finasteride [Proscar 5 MG (*)] 5 mg PO DAILY 05/15/14 Losartan Potassium [Cozaar] 100 mg PO DAILY 05/15/14 Simvastatin [Zocor] 40 mg PO DAILY 05/15/14 amLODIPine BESYLATE [Norvasc 5 mg 5 mg PO DAILY 05/15/14 (*)] Clopidogrel Bisulfate [Plavix (*)] 75 mg PO DAILY #30 tab 01/15/17 traMADol [Ultram 50 mg (*)] 50 mg PO Q6 PRN #12 tab 10/08/17 Medical Decision Making - Diagnostics Imaging Results: Imaging Impressions Knee X-Ray 10/08/17 17:54 Impression: Negative. No explanation for ecchymosis. Procedures: Procedure: Splint placement. A Buck wrap and right knee immobilizer was applied by the emergency room telegraph repeater technician. After application of the splint I returned and re-examined the patient. The splint was adequately immobilizing the joint and distal to the splint the patient's circulation and sensation was intact. ED Course/Re-evaluation: Right knee x-ray, right lower extremity ultrasound, oral medications ordered Given Tylenol 650 mg. No signs of neurovascular compromise/tenting of skin/compartment syndrome/ extremities and joints examined above and below area of concern and are neurovascularly intact/septic arthritis/gouty arthropathy X-ray my read shows soft tissue swelling over the medial aspect but no dislocation/fracture 1900: Called by radiologist who advised there is a hematoma in the medial aspect 4.5 cm x 3.8 cm x 1.5 cm Buck wrap and knee immobilizer provided, RICE, Ortho follow-up, pain control Patient and politely declined crutches/walker. prefer to use walking cane. Past ambulation trial prior to discharge. This patient was seen under the supervision of my secondary supervising physician. I evaluated care for this patient independently. Differential Diagnosis: Leg swelling including but not limited to hypoalbuminemia, congestive heart failure, cor pulmonale, chronic venous stasis and DVT. - Data Points Medications Given: Discontinued Medications Acetaminophen (Tylenol) 650 mg PO EDNOW ONE Stop: 10/08/17 17:55 Last Admin: 10/08/17 18:10 Dose: 650 mg Departure - Departure Disposition: Home, Routine, Self-Care Clinical Impression: Traumatic hematoma of right knee Qualifiers: Encounter type: initial encounter Qualified Code(s): S80.01XA - Contusion of right knee, initial encounter Condition: Good Instructions: Hematoma (ED), Bone Bruise (ED) Additional Instructions: Wear Buck wrap except to shower until completely resolved. Wear knee immobilizer while out of bed. Take Tylenol 650 mg every 4 hours and/or Ibuprofen 600 mg every 8 hours with food as needed for pain. Use tramadol every 6 hours as needed for severe/break through pain. Apply ice for 30 minutes at a time; 2-3 times per day for the next 1-2 days. Follow up with Orthopedics in 5-7 days at which time they will evaluate and recommend with you if conservative management versus further adjuvant therapy is indicated. Return to the ER immediately if you experience new or worsening pain, discoloration, numbness, tingling, or any other symptoms that concern you. Referrals: Abdoulaye Kaur MD [Primary Care Provider] - As per Instructions Angel Larson MD [Medical Doctor] - As per Instructions Prescriptions: traMADol [Ultram 50 mg (*)] 50 mg PO Q6 PRN #12 tab PRN Reason: Pain, Breakthrough
[2017-10-08] MEDS ORDERED: ACETAMINOPHEN 325 MG TAB PO ONE (17:54)
[2017-10-08 19:45] VITALS: BP 188/104
== END 2017-10-08 19:45 | disposition home or self-care (01) ==
DX: S80.01XA Contusion of right knee, initial encounter (principal); I10 Essential (primary) hypertension; Z95.5 Presence of coronary angioplasty implant and graft; Z87.891 Personal history of nicotine dependence; Z79.82 Long term (current) use of aspirin; X58.XXXA Exposure to other specified factors, initial encounter; Y99.8 Other external cause status; Y93.39 Activity, other involving climbing, rappelling and jumping off
CPT/HCPCS: 73564; 93971; 99284; L1830